=== PATIENT | female | born 1990 | race Caucasian/White ===

== ENCOUNTER 2020-09-11 03:40 | Emergency (ER) | payer OTHER ==
[2020-09-11 04:56] VITALS: TEMP 98.6; BMI 33.2
[2020-09-11] MEDS ORDERED: ACETAMINOPHEN 325 MG TABLET (FP) PO ONE (06:38)
[2020-09-11] MEDS ORDERED: ACETAMINOPHEN 325 MG TABLET (FP) ONE (06:43)
[2020-09-11 07:40] VITALS: BP 110/72; PULSE 86
[2020-09-11] MEDS ORDERED: KETOROLAC TROMETHAMINE 30 MG/1 ML VIAL IM ONE (08:22)
[2020-09-11] MEDS ORDERED: KETOROLAC TROMETHAMINE 30 MG/1 ML VIAL ONE (08:39)
== END 2020-09-11 09:22 | disposition home or self-care (01) ==
LOC: JER 03:40
PROC: 3E023GC Introduction of Other Therapeutic Substance into Muscle, Percutaneous Approach (ICD-10-PCS; principal; 2020-09-11)
DX: R51.9 Headache, unspecified (principal); R07.81 Pleurodynia; Y04.8XXA Assault by other bodily force, initial encounter
CPT/HCPCS: 70450-TC; 70486-TC; 71046-TC-FY; 84703; 99284-25

== ENCOUNTER 2021-01-28 18:10 | Emergency (ER) | payer OTHER ==
[2021-01-28 18:19] VITALS: BP 117/79; PULSE 101; TEMP 97.9; BMI 37.8
[2021-01-28] MEDS ORDERED: ACETAMINOPHEN 500 MG TABLET (FP) PO ONE (19:10)
[2021-01-28] MEDS ORDERED: ACETAMINOPHEN 500 MG TABLET (FP) ONE (19:31)
[2021-01-28 20:44] LABS: BASO % 0.7 % (0-2.0); EOS % 1.2 % (0-4.5); HEMATOCRIT 36.2 % (32.4-45.2); HEMOGLOBIN 12.2 GM/dL (10.7-15.3); LYMPH % 31.4 % (8-40); MCH 30.9 pg (25.7-33.7); MCHC 33.7 g/dl (32.0-36.0); MEAN CELL VOLUME 91.6 fl (80-96); MEAN PLT VOLUME 8.8 fl (7.5-11.1); NEUT % 60.7 % (42.8-82.8); PLATELET COUNT 212 10^3/uL (134-434); RBC 3.95 M/mm3 (3.60-5.2); RDW 13.9 % (11.6-15.6); WHITE BLOOD COUNT 9.4 K/mm3 (4.0-10.0)
[2021-01-28 20:55] LABS: EPI CELLS 9 /uL (0-25.1); HYALINE CASTS 1 /uL (0-3.1); PH,URINE 5.5 (5.0-8.0); URINE APPEARANCE CLEAR; URINE BACTERIA 174 /uL (0-1359); URINE BILIRUBIN NEGATIVE (NEGATIVE); URINE COLOR YELLOW; URINE GLUCOSE (UA) NEGATIVE (NEGATIVE); URINE KETONE NEGATIVE (NEGATIVE); URINE LEUK ESTERASE NEGATIVE (NEGATIVE); URINE NITRITE NEGATIVE (NEGATIVE); URINE PROTEIN NEGATIVE (NEGATIVE); URINE RBC 6 /uL (0-23.9); URINE UROBILINOGEN 0.2 mg/dL (0.2-1.0); URINE WBC 7 /uL (0-25.8)
[2021-01-28 20:59] LABS: CHLORIDE 110 mmol/L (98-107); SODIUM 143 mmol/L (136-145)
[2021-01-28 21:00] LABS: CALCIUM 8.6 mg/dL (8.5-10.1)
[2021-01-28 21:01] LABS: ALBUMIN 3.9 g/dl (3.4-5.0); ANION GAP 8 MMOL/L (8-16); BLOOD UREA NITROGEN 11.2 mg/dL (7-18); CO2 24 mmol/L (21-32); GLUCOSE,RANDOM 77 mg/dL (74-106)
[2021-01-28 21:04] LABS: CREATININE 0.5 mg/dL (0.55-1.3); SGOT/AST 44 U/L (15-37); SGPT/ALT 25 U/L (13-61)
[2021-01-28 21:06] LABS: BILIRUBIN,TOTAL 0.5 mg/dL (0.2-1); TOT PROT 7.5 g/dl (6.4-8.2)
[2021-01-28 21:07] LABS: ALK PHOS 107 U/L (45-117)
[2021-01-28] MEDS ORDERED: RABIES IMMUNE GLOBULIN 300 UNITS/1 ML VIAL IM ONE (21:07)
[2021-01-28] MEDS ORDERED: RABIES IMMUNE GLOBULIN 300 UNITS/1 ML VIAL ONE (21:46)
[2021-01-28] MEDS ORDERED: TETANUS AND DIPHTHERIA TOXOID 0.5 ML DISP.SYRIN IM ONE (21:47)
[2021-01-28] MEDS ORDERED: RABIES VACCINE (PCEC)/PF 2.5 UNIT/VIAL IM ONE ×2 (21:50→22:22)
[2021-01-28] MEDS ORDERED: KETOROLAC TROMETHAMINE 30 MG/1 ML VIAL IM ONE (21:56)
[2021-01-28] MEDS ORDERED: KETOROLAC TROMETHAMINE 30 MG/1 ML VIAL ONE (22:10)
== END 2021-01-28 23:56 | disposition home or self-care (01) ==
LOC: JER 18:10
PROC: 3E0233Z Introduction of Anti-inflammatory into Muscle, Percutaneous Approach (ICD-10-PCS; principal; 2021-01-28)
PROC: 3E0234Z Introduction of Serum, Toxoid and Vaccine into Muscle, Percutaneous Approach (ICD-10-PCS; 2021-01-28)
PROC: 3E0234Z Introduction of Serum, Toxoid and Vaccine into Muscle, Percutaneous Approach (ICD-10-PCS; 2021-01-28)
PROC: 3E0234Z Introduction of Serum, Toxoid and Vaccine into Muscle, Percutaneous Approach (ICD-10-PCS; 2021-01-28)
DX: N94.6 Dysmenorrhea, unspecified (principal); Z29.14 Encounter for prophylactic rabies immune globulin; W54.0XXA Bitten by dog, initial encounter
CPT/HCPCS: 36415; 76830-TC; 80053; 81003; 84702; 84703; 85025; 86850; 86900; 86901; 87086; 87491; 87591; 87661; 90375; 90675; 99284-25

== ENCOUNTER 2021-01-31 10:10 | Emergency (ER) | payer OTHER ==
[2021-01-31 10:35] VITALS: BP 122/62; PULSE 83; TEMP 97; BMI 37.8
[2021-01-31] MEDS ORDERED: RABIES VACCINE (PCEC)/PF 2.5 UNIT/VIAL IM ONE (11:28)
== END 2021-01-31 11:51 | disposition home or self-care (01) ==
LOC: JERFT 10:10 → JER 10:10 → JERFT 11:51
DX: Z23 Encounter for immunization (principal)
CPT/HCPCS: 99281-25